=== PATIENT | female | born 1985 | race Caucasian/White ===

== ENCOUNTER → 2016-08-17 | Outpatient (CLI) | payer BC | LOC: BHSO 15:17 | DX: F42.8 Other obsessive-compulsive disorder (principal) ==

== ENCOUNTER → 2016-11-24 | Outpatient (CLI) | payer BC | LOC: BHSO 09:01 | DX: F42.8 Other obsessive-compulsive disorder (principal) ==

== ENCOUNTER → 2017-05-31 | Outpatient (CLI) | payer BC | LOC: BHSO 09:05 | DX: F42.8 Other obsessive-compulsive disorder (principal) ==

== ENCOUNTER → 2017-11-29 | Outpatient (CLI) | payer BC | LOC: BHSO 09:01 | DX: F42.8 Other obsessive-compulsive disorder (principal) | CPT/HCPCS: G0463 ==